=== PATIENT | female | born 1945 | race Caucasian/White ===

== ENCOUNTER 2022-03-17 11:51 | Outpatient (CLI) | payer MEDICARE, OTHER, SELFPAY ==
[2022-03-17 14:05] LABS: Vitamin D 25 Hydroxy* 43 ng/mL (30-80)
[2022-03-17 14:05] LABS: Chloride* 103 mmol/L (96-114); Potassium* 4.3 mmol/L (3.6-5.1); Sodium* 140 mmol/L (135-149)
[2022-03-17 14:08] LABS: Blood Urea Nitrogen* 24 mg/dL (7-30); Carbon Dioxide* 32 mmol/L (20-32); Creatinine* 0.7 mg/dL (0.5-1.5); Estimated Glomerular Filt Rate 91 ml/min
[2022-03-17 14:09] LABS: Calcium* 9.9 mg/dL (8.4-10.6); Glucose* 84 mg/dL (60-115)
== END 2022-03-17 11:52 | disposition home or self-care (01) ==
PROVIDERS: PCP Family Medicine; Visit Provider Family Medicine
DX: R53.83 Other fatigue (principal); E55.9 Vitamin D deficiency, unspecified; I10 Essential (primary) hypertension; E78.5 Hyperlipidemia, unspecified; E03.9 Hypothyroidism, unspecified; E11.9 Type 2 diabetes mellitus without complications
CPT/HCPCS: 80048; 82306; 84443

== ENCOUNTER 2022-10-25 08:10 | Outpatient (CLI) | payer MEDICARE, OTHER, SELFPAY ==
[2022-10-25 14:16] LABS: Basophils Absolute Auto 0.02 K/uL (0.00-0.30); Basophils Percent Auto 0.3 % (0.0-3.0); Eosinophils Absolute Auto 0.32 K/uL (0.00-0.50); Eosinophils Percent Auto 5.5 % (0.0-7.0); Hemoglobin* 12.8 gm/dL (12.0-16.0); Immature Granulocytes Abs Auto 0.01 K/uL (0.00-0.30); Immature Granulocytes Pct Auto 0.2 %; Lymphocytes Absolute Auto 1.33 K/uL (0.90-2.90); Lymphocytes Percent Auto 22.9 % (20-44); Mean Corpuscular HGB Conc 35 gm/dL (32-36); Mean Corpuscular Hemoglobin 35 pg (26-34); Mean Corpuscular Volume 101 fL (80-100); Monocytes Percent Auto 8.2 % (0.0-11.0); Neutrophils Absolute Auto 3.66 K/uL (1.7-7.0); Neutrophils Percent Auto 62.9 % (42.0-72.0); Platelet Count* 188 K/uL (140-440); RDW Coefficient of Variation % 15.8 % (11.5-15.5); Red Blood Count 3.66 m/uL (4.00-5.20); White Blood Count* 5.82 K/uL (4.50-11.00)
[2022-10-25 14:20] LABS: Slide Review Reflex No
[2022-10-25 14:25] LABS: Chloride* 100 mmol/L (96-114); Sodium* 137 mmol/L (135-149)
[2022-10-25 14:26] LABS: Potassium* 4.5 mmol/L (3.6-5.1)
[2022-10-25 14:28] LABS: Carbon Dioxide* 30 mmol/L (20-32); Creatinine* 0.6 mg/dL (0.5-1.5); Estimated Glomerular Filt Rate 94 ml/min
[2022-10-25 14:29] LABS: Alanine Aminotransferase* 21 U/L (4-35); Blood Urea Nitrogen* 26 mg/dL (7-30); Calcium* 9.4 mg/dL (8.4-10.6); Glucose* 248 mg/dL (60-115)
== END 2022-10-25 08:11 | disposition home or self-care (01) ==
PROVIDERS: PCP Family Medicine; Visit Provider Family Medicine
DX: I10 Essential (primary) hypertension (principal); L40.9 Psoriasis, unspecified; E03.9 Hypothyroidism, unspecified; E55.9 Vitamin D deficiency, unspecified; E78.5 Hyperlipidemia, unspecified; E11.9 Type 2 diabetes mellitus without complications
CPT/HCPCS: 80048; 80061; 84443; 84460; 85025

== ENCOUNTER 2023-01-21 08:37 | Outpatient (CLI) | payer MEDICARE, OTHER, SELFPAY ==
--- OUTSIDE RECORDS SUMMARY | 2023-01-21 08:39 | XMS_ITS | Patient Health Record ---
Author Name Unknown Organization [facility] Address [address] [place], [place] [address] Care Team Providers Care Consumer Safety Inspector Name Role Phone Tiffany Edwardsily Primary Care Provider ALLERGIES No Known Allergies REASON FOR REFERRAL No Information MEDICATIONS Medication SIG (Take, Route, Frequency, Duration) Notes Start Date End Date Status Methotrexate 15MG 6 tab 1day a week Active Lisinopril 20MG once daily Act james Humalog Pen 12 units before each meal Active Lantus SoloStar 100 UNIT/ML as directed Subcutaneous 30 units QHS Active Fish Oil daily Active Vitamin D3 daily Active Calcium Magnesium daily Ac tive Zinc daily Active Folate 800mcg daily Active SOCIAL HISTORY Tobacco Use: Social History Observation Description Date Details (start date - stop date) Never Smoker NA - NA Sex Assigned At : Social History Observation Description Sex Assigned At Unknown Tobacco Use/Smoking Question Answer Notes Are you a nonsmoker Alcohol Screen (Audit-C) Question Answer Notes Did you have a drink containing alcohol in the p ast year? No Points 0 Interpretation Negative Sexual History Question Answer Notes Had sex in the past 12 months (vaginal, oral, or anal)? No Have you ever had a Sexually transmitted disease ? No PROBLEMS Problem Type ICD Code Onset Dates Problem Status W/U Status Risk SNOMED Code Notes Problem Rectocele (N81.6) Active confirmed Laxmi iation of rectum into vagina (515876976) Problem Cystocele (N81.10) Active confirmed Cystocele (956485670) Problem Stress incontinence of urine (N39.3) Active confirmed SI - Stress incontinence (48462874) Problem Uterovaginal prolapse, complete (N81.3) Active confirmed 28536333 Problem Female stress incontinence (N39.3) Active confirmed Female stress incontinence (84330674) Problem Stress incontinence, female (N39.3) Active confirmed 42081366 Problem Complete uterine prolapse (N81.3) Active confirmed Complete uterine prolapse (36525489) Problem Uncontrolled type 2 diabetes mellitus with hyperglycemia (E11.65) Active confirmed 884372336 PLAN OF TREATMENT No Information Insurance Providers Payer Name Payer Address Payer Phone Subscriber Number Group Number Insured Name Patient Relationship to Insured Coverage Start Date Coverage End Date Med[employer] (Ins. Bill) [address] [address] [place], [place] [id number] Celena Montez Self - patient is the insured Medicare (Ins. Bill) [address] [place], [place] [id number] Celena Montez Self - patient is the insured MEDICAL (GENERAL) HISTORY Medical History History ICD Code Hypertension Diabetes Arthritis Vericose veins Psoriasis Surgical History Surgery Date(Month/Year) appendix and right ovary removal 1970
== END 2023-01-21 08:38 | disposition home or self-care (01) ==
LOC: WOUND 08:37
PROVIDERS: PCP Family Medicine; Visit Provider Nurse Practitioner Family
DX: S81.802A Unspecified open wound, left lower leg, initial encounter (principal); W26.8XXA Contact with other sharp object(s), not elsewhere classified, initial encounter; I87.2 Venous insufficiency (chronic) (peripheral); E11.9 Type 2 diabetes mellitus without complications; Z79.4 Long term (current) use of insulin
CPT/HCPCS: 97597; 99213

== ENCOUNTER 2023-01-28 08:16 | Outpatient (CLI) | payer MEDICARE, OTHER, SELFPAY ==
--- OUTSIDE RECORDS SUMMARY | 2023-01-28 08:18 | XMS_ITS | Patient Health Record ---
Author Name Unknown Organization [facility] Address [address] [place], [place] [address] Care Team Providers Care Manager Payer Name Role Phone Tiffany Edwardsily Primary Care [...] confirmed Laxmi iation of rectum into vagina (810764802) Problem Cystocele (N81.10) Active confirmed Cystocele (536573368) Problem Stress incontinence of urine (N39.3) Active confirmed SI - Stress incontinence (86562731) Problem Uterovaginal prolapse, complete (N81.3) Active confirmed 74726796 Problem Female stress incontinence (N39.3) Active confirmed Female stress incontinence (47439048) Problem Stress incontinence, female (N39.3) Active confirmed 71612219 Problem Complete uterine prolapse (N81.3) Active confirmed Complete uterine prolapse (87644996) Problem Uncontrolled type 2 diabetes mellitus with hyperglycemia (E11.65) Active confirmed 467078352 PLAN OF TREATMENT No Information Insurance Providers Payer Name Payer Address Payer Phone Subscriber Number Group Number Insured Name Patient Relationship to Insured Coverage Start Date Coverage End Date Med[employer] (Ins. Bill) [address] [address] [place], [place] [id number] Celena Montez Self - patient is the insured Medicare (Ins. Bill) [address] [place], [place] [id number] Celena Montez Self - patient is the insured MEDICAL (GENERAL) HISTORY Medical History History ICD Code Hypertension Diabetes Arthritis Vericose veins Psoriasis Surgical History Surgery Date(Month/Year) appendix and right ovary removal 1970
== END 2023-01-28 08:17 | disposition home or self-care (01) ==
LOC: WOUND 08:16
PROVIDERS: PCP Family Medicine; Visit Provider Nurse Practitioner Family
DX: S81.802A Unspecified open wound, left lower leg, initial encounter (principal); I87.2 Venous insufficiency (chronic) (peripheral); E11.9 Type 2 diabetes mellitus without complications; Z79.4 Long term (current) use of insulin
CPT/HCPCS: 11042

== ENCOUNTER 2023-02-04 09:04 | Outpatient (CLI) | payer MEDICARE, OTHER, SELFPAY ==
--- OUTSIDE RECORDS SUMMARY | 2023-02-04 09:05 | XMS_ITS | Patient Health Record ---
Author Name Unknown Organization [facility] Address [address] [place], [place] [address] Care Team Providers Care Production Team Member Name Role Phone Tiffany Edwardsily Primary Care Provider [phone] ALLERGIES No Known Allergies REASON FOR REFERRAL [...] confirmed Laxmi iation of rectum into vagina (637072255) Problem Cystocele (N81.10) Active confirmed Cystocele (774392381) Problem Stress incontinence of urine (N39.3) Active confirmed SI - Stress incontinence (64359049) Problem Uterovaginal prolapse, complete (N81.3) Active confirmed 89224482 Problem Female stress incontinence (N39.3) Active confirmed Female stress incontinence (13125547) Problem Stress incontinence, female (N39.3) Active confirmed 95520005 Problem Complete uterine prolapse (N81.3) Active confirmed Complete uterine prolapse (82207031) Problem Uncontrolled type 2 diabetes mellitus with hyperglycemia (E11.65) Active confirmed 560072678 PLAN OF TREATMENT No Information Insurance Providers Payer Name Payer Address Payer Phone Subscriber Number Group Number Insured Name Patient Relationship to Insured Coverage Start Date Coverage End Date Med[employer] (Ins. Bill) [address] [address] [place], [place] [id number] Celena Montez Self - patient is the insured Medicare (Ins. Bill) [address] [place], [place] [id number] Celena Montez Self - patient is the insured MEDICAL (GENERAL) HISTORY Medical History History ICD Code Hypertension Diabetes Arthritis Vericose veins Psoriasis Surgical History Surgery Date(Month/Year) appendix and right ovary removal 1970
== END 2023-02-04 09:05 | disposition home or self-care (01) ==
LOC: WOUND 09:04
PROVIDERS: PCP Family Medicine; Visit Provider Nurse Practitioner Family
DX: I87.2 Venous insufficiency (chronic) (peripheral) (principal); S81.802A Unspecified open wound, left lower leg, initial encounter; E11.9 Type 2 diabetes mellitus without complications; Z79.4 Long term (current) use of insulin
CPT/HCPCS: 11042; 87070; 87186

== ENCOUNTER 2023-02-11 08:46 | Outpatient (CLI) | payer MEDICARE, OTHER, SELFPAY ==
--- OUTSIDE RECORDS SUMMARY | 2023-02-11 08:48 | XMS_ITS | Patient Health Record ---
Author Name Unknown Organization [facility] Address [address] [place], [place] [address] Care Team Providers Care Industrial Sales Engineer Name Role Phone Tiffany Edwardsily Primary Care Provider [phone] ALLERGIES No Known Allergies REASON FOR REFERRAL [...] confirmed Laxmi iation of rectum into vagina (966266965) Problem Cystocele (N81.10) Active confirmed Cystocele (133216568) Problem Stress incontinence of urine (N39.3) Active confirmed SI - Stress incontinence (79515904) Problem Uterovaginal prolapse, complete (N81.3) Active confirmed 07045574 Problem Female stress incontinence (N39.3) Active confirmed Female stress incontinence (37759645) Problem Stress incontinence, female (N39.3) Active confirmed 35763190 Problem Complete uterine prolapse (N81.3) Active confirmed Complete uterine prolapse (15249940) Problem Uncontrolled type 2 diabetes mellitus with hyperglycemia (E11.65) Active confirmed 396452322 PLAN OF TREATMENT No Information Insurance Providers Payer Name Payer Address Payer Phone Subscriber Number Group Number Insured Name Patient Relationship to Insured Coverage Start Date Coverage End Date Med[employer] (Ins. Bill) [address] [address] [place], [place] [id number] Celena Montez Self - patient is the insured Medicare (Ins. Bill) [address] [place], [place] [id number] Celena Montez Self - patient is the insured MEDICAL (GENERAL) HISTORY Medical History History ICD Code Hypertension Diabetes Arthritis Vericose veins Psoriasis Surgical History Surgery Date(Month/Year) appendix and right ovary removal 1970
== END 2023-02-11 08:47 | disposition home or self-care (01) ==
LOC: WOUND 08:46
PROVIDERS: PCP Family Medicine; Visit Provider Family Medicine
DX: I87.2 Venous insufficiency (chronic) (peripheral) (principal); S81.802A Unspecified open wound, left lower leg, initial encounter; E11.9 Type 2 diabetes mellitus without complications; Z79.4 Long term (current) use of insulin
CPT/HCPCS: 97597

== ENCOUNTER 2023-03-04 08:35 | Outpatient (CLI) | payer MEDICARE, OTHER, SELFPAY ==
--- OUTSIDE RECORDS SUMMARY | 2023-03-04 08:38 | XMS_ITS | Patient Health Record ---
Author Name Unknown Organization [facility] Address [address] [place], [place] [address] Care Team Providers Care Montessori Preschool Teacher Name Role Phone Tiffany Edwardsily Primary Care [...] confirmed Laxmi iation of rectum into vagina (210046201) Problem Cystocele (N81.10) Active confirmed Cystocele (626969356) Problem Stress incontinence of urine (N39.3) Active confirmed SI - Stress incontinence (53142166) Problem Uterovaginal prolapse, complete (N81.3) Active confirmed 83856180 Problem Female stress incontinence (N39.3) Active confirmed Female stress incontinence (71776675) Problem Stress incontinence, female (N39.3) Active confirmed 06116538 Problem Complete uterine prolapse (N81.3) Active confirmed Complete uterine prolapse (09327215) Problem Uncontrolled type 2 diabetes mellitus with hyperglycemia (E11.65) Active confirmed 082965049 PLAN OF TREATMENT No Information Insurance Providers Payer Name Payer Address Payer Phone Subscriber Number Group Number Insured Name Patient Relationship to Insured Coverage Start Date Coverage End Date Med[employer] (Ins. Bill) [address] [address] [place], [place] [id number] Celena Montez Self - patient is the insured Medicare (Ins. Bill) [address] [place], [place] [id number] Celena Montez Self - patient is the insured MEDICAL (GENERAL) HISTORY Medical History History ICD Code Hypertension Diabetes Arthritis Vericose veins Psoriasis Surgical History Surgery Date(Month/Year) appendix and right ovary removal 1970
== END 2023-03-04 08:36 | disposition home or self-care (01) ==
PROVIDERS: PCP Family Medicine; Visit Provider Nurse Practitioner Family
DX: I87.2 Venous insufficiency (chronic) (peripheral) (principal); E11.9 Type 2 diabetes mellitus without complications; L97.822 Non-pressure chronic ulcer of other part of left lower leg with fat layer exposed; Z79.4 Long term (current) use of insulin
CPT/HCPCS: 11042

== ENCOUNTER 2023-03-11 09:28 | Outpatient (CLI) | payer MEDICARE, OTHER, SELFPAY ==
--- OUTSIDE RECORDS SUMMARY | 2023-03-11 09:31 | XMS_ITS | Patient Health Record ---
Author Name Unknown Organization [facility] Address [address] [place] [address] Care Team Providers Care Production Designer Name Role Phone Tiffany Edwardsily Primary Care Provider [phone] ALLERGIES No Known Allergies REASON FOR REFERRAL [...] confirmed Laxmi iation of rectum into vagina (325180265) Problem Cystocele (N81.10) Active confirmed Cystocele (465781558) Problem Stress incontinence of urine (N39.3) Active confirmed SI - Stress incontinence (20336592) Problem Uterovaginal prolapse, complete (N81.3) Active confirmed 93320906 Problem Female stress incontinence (N39.3) Active confirmed Female stress incontinence (03078376) Problem Stress incontinence, female (N39.3) Active confirmed 20781695 Problem Complete uterine prolapse (N81.3) Active confirmed Complete uterine prolapse (98907983) Problem Uncontrolled type 2 diabetes mellitus with hyperglycemia (E11.65) Active confirmed 940952724 PLAN OF TREATMENT No Information Insurance Providers Payer Name Payer Address Payer Phone Subscriber Number Group Number Insured Name Patient Relationship to Insured Coverage Start Date Coverage End Date Med[employer] (Ins. Bill) [address] [address] [place], [place] [id number] Celena Montez Self - patient is the insured Medicare (Ins. Bill) [address] [place], [place] [id number] Celena Montez Self - patient is the insured MEDICAL (GENERAL) HISTORY Medical History History ICD Code Hypertension Diabetes Arthritis Vericose veins Psoriasis Surgical History Surgery Date(Month/Year) appendix and right ovary removal 1970
== END 2023-03-11 09:29 | disposition home or self-care (01) ==
LOC: WOUND 09:29
PROVIDERS: PCP Family Medicine; Visit Provider Family Medicine
DX: I87.2 Venous insufficiency (chronic) (peripheral) (principal); L97.822 Non-pressure chronic ulcer of other part of left lower leg with fat layer exposed; E11.9 Type 2 diabetes mellitus without complications; Z79.4 Long term (current) use of insulin
CPT/HCPCS: 11042

== ENCOUNTER 2023-03-18 09:12 | Outpatient (CLI) | payer MEDICARE, OTHER, SELFPAY | END 2023-03-18 09:13 | disposition home or self-care (01) | LOC: WOUND 09:12 | PROVIDERS: PCP Family Medicine; Visit Provider Nurse Practitioner Family | DX: I87.2 Venous insufficiency (chronic) (peripheral) (principal); L97.821 Non-pressure chronic ulcer of other part of left lower leg limited to breakdown of skin; E11.9 Type 2 diabetes mellitus without complications; Z79.4 Long term (current) use of insulin | CPT/HCPCS: 97597 ==

== ENCOUNTER 2023-03-25 09:16 | Outpatient (CLI) | payer MEDICARE, OTHER, SELFPAY ==
--- OUTSIDE RECORDS SUMMARY | 2023-03-25 09:18 | XMS_ITS | Patient Health Record ---
Author Name Unknown Organization [facility] Address [address] [place] [address] Care Team Providers Care Controller Operations And Hr Manager Name Role Phone Tiffany Edwardsily Primary Care [...] confirmed Laxmi iation of rectum into vagina (847077662) Problem Cystocele (N81.10) Active confirmed Cystocele (950027718) Problem Stress incontinence of urine (N39.3) Active confirmed SI - Stress incontinence (93581531) Problem Uterovaginal prolapse, complete (N81.3) Active confirmed 49015743 Problem Female stress incontinence (N39.3) Active confirmed Problem Stress incontinence, female (N39.3) Active confirmed 39042780 Problem Complete uterine prolapse (N81.3) Active confirmed Problem Uncontrolled type 2 diabetes mellitus with hyperglycemia (E11.65) Active confirmed 459686912 PLAN OF TREATMENT No Information Insurance Providers Payer Name Payer Address Payer Phone Subscriber Number Group Number Insured Name Patient Relationship to Insured Coverage Start Date Coverage End Date Med[employer] (Ins. Bill) [address] [address] [place], [place] [id number] Celena Montez Self - patient is the insured Medicare (Ins. Bill) [address] [place], [place] [id number] Celena Montez Self - patient is the insured MEDICAL (GENERAL) HISTORY Medical History History ICD Code Hypertension Diabetes Arthritis Vericose veins Psoriasis Surgical History Surgery Date(Month/Year) appendix and right ovary removal 1970
== END 2023-03-25 09:17 | disposition home or self-care (01) ==
LOC: WOUND 09:16
PROVIDERS: PCP Family Medicine; Visit Provider Nurse Practitioner Family
DX: I87.2 Venous insufficiency (chronic) (peripheral) (principal); L97.821 Non-pressure chronic ulcer of other part of left lower leg limited to breakdown of skin; E11.9 Type 2 diabetes mellitus without complications; Z79.4 Long term (current) use of insulin
CPT/HCPCS: 97597

== ENCOUNTER 2023-03-31 13:20 | Outpatient (CLI) | payer MEDICARE, OTHER, SELFPAY | END 2023-03-31 13:21 | disposition home or self-care (01) | PROVIDERS: PCP Family Medicine; Visit Provider Family Medicine | DX: E11.9 Type 2 diabetes mellitus without complications (principal); I10 Essential (primary) hypertension; E03.9 Hypothyroidism, unspecified | CPT/HCPCS: 80048; 84443 ==

== ENCOUNTER 2023-04-01 09:21 | Outpatient (CLI) | payer MEDICARE, OTHER, SELFPAY ==
--- OUTSIDE RECORDS SUMMARY | 2023-04-01 09:23 | XMS_ITS | Patient Health Record ---
Author Name Unknown Organization [facility] Address [address] [place] [address] Care Team Providers Care Program Director Cable Television Name Role Phone Tiffany Edwardsily Primary Care [...] confirmed Laxmi iation of rectum into vagina (280062269) Problem Cystocele (N81.10) Active confirmed Cystocele (209098627) Problem Stress incontinence of urine (N39.3) Active confirmed SI - Stress incontinence (79399103) Problem Uterovaginal prolapse, complete (N81.3) Active confirmed 94511079 Problem Female stress incontinence (N39.3) Active confirmed Female stress incontinence (78361442) Problem Stress incontinence, female (N39.3) Active confirmed 20158974 Problem Complete uterine prolapse (N81.3) Active confirmed Complete uterine prolapse (52247497) Problem Uncontrolled type 2 diabetes mellitus with hyperglycemia (E11.65) Active confirmed 424361349 PLAN OF TREATMENT No Information Insurance Providers Payer Name Payer Address Payer Phone Subscriber Number Group Number Insured Name Patient Relationship to Insured Coverage Start Date Coverage End Date Med[employer] (Ins. Bill) [address] [address] [place], [place] [id number] Celena Montez Self - patient is the insured Medicare (Ins. Bill) [address] [place], [place] [id number] Celena Montez Self - patient is the insured MEDICAL (GENERAL) HISTORY Medical History History ICD Code Hypertension Diabetes Arthritis Vericose veins Psoriasis Surgical History Surgery Date(Month/Year) appendix and right ovary removal 1970
== END 2023-04-01 09:22 | disposition home or self-care (01) ==
LOC: WOUND 09:21
PROVIDERS: PCP Family Medicine; Visit Provider Nurse Practitioner Family
DX: I87.2 Venous insufficiency (chronic) (peripheral) (principal); L97.822 Non-pressure chronic ulcer of other part of left lower leg with fat layer exposed; E11.9 Type 2 diabetes mellitus without complications; Z79.4 Long term (current) use of insulin
CPT/HCPCS: G0463

== ENCOUNTER 2023-06-23 12:01 | Outpatient (CLI) | payer MEDICARE, OTHER, SELFPAY | END 2023-06-23 12:02 | disposition home or self-care (01) | PROVIDERS: PCP Family Medicine; Visit Provider Family Medicine | DX: E11.9 Type 2 diabetes mellitus without complications (principal); E03.9 Hypothyroidism, unspecified; I10 Essential (primary) hypertension; Z79.4 Long term (current) use of insulin | CPT/HCPCS: 80048; 84443; 85025 ==

== ENCOUNTER 2024-03-07 10:45 | Outpatient (CLI) | payer MEDICARE, OTHER, SELFPAY ==
--- OUTSIDE RECORDS SUMMARY | 2024-03-07 10:47 | XMS_ITS | Referral Summary ---
Author Organization [facility] Address [address] [place] [address] Care Team Providers Care Knitter Machine Name Role Phone Gabino Sidhu MD Primary Care Provider Allergies No known active allergies Medications aspirin 81 MG EC tablet Take 81 mg by mouth daily Active lisinopril-hydr ochlorothiazide (ZESTORETIC) 20-12.5 MG tablet Take 1 tablet by mouth daily Active methotrexate 2.5 MG tablet Take 15 mg by mouth once a week Take 6 tablets every Tuesday Active folic acid (FOLVITE) 1 MG tablet Take 1 mg by mouth daily Active insulin glargine (BASAGLAR KWIKPEN) 100 UNIT/ML pen Inject 30 Units Subcutaneous At Bedtime Active Calcium Citrate-Vitamin D 200-250 MG-UNIT TABS Take 1 tablet by mouth daily Active Epes-3 Fatty Acids (FISH OIL) 1200 MG capsule 1,200 mg daily Activ e ibuprofen (ADVIL/MOTRIN) 600 MG tabletIndicatio ns:Postoperativ e pain Take 1 tablet (600 mg) by mouth every 6 hours as needed for other (mild and/or inflammatory pain) 30 tablet 1 Active acetaminophen (TYLENOL) 325 MG tabletIndicatio ns:Postoperativ e pain Take 2 tablets (650 mg) by mouth every 6 hours as needed for mild pain 30 tablet 1 Active oxyCODONE (ROXICODONE) 5 MG tabletIndicatio ns:Postoperativ e pain Take 1-2 tablets (5-10 mg) by mouth every 6 hours as needed for moderate to severe pain 12 tablet 1 Active ondansetron (ZOFRAN-ODT) 4 MG ODT tabIndications: Postoperative pain Take 1-2 tablets (4-8 mg) by mouth every 8 hours as needed for nausea 12 tablet Active insulin lispro (HUMALOG KWIKPEN) 100 UNIT/ML (1 unit dial) KWIKPEN Inject 10 Units Subcutaneous 3 times daily (before meals) Active Active Problems Problem Noted Date Diagnosed Date Uterovaginal prolapse, complete 01/01/2021 Stress incontinence 01/01/2021 Postoperative state 01/01/2021 Social History Tobacco Use Types Packs/Day Years Used Date Smoking Tobacco: Never Smokeless Tobacco: Never Alcohol Use Standard Drinks/Week Comments Not Currently 0 (1 standard drink = 0.6 oz pur e alcohol) Adolescent Education Answer Date Record ed Getting School Help Needed Not on file 12/25 Comments No Sex and Gender Information Value Date Recorded Sex Assigned at Not on file Legal Sex Female 2:41 PM CDT Gender Identity Not on file Sexual Orientation Not on file Last Filed Vital Signs Vital Sign Reading Time Taken Comments Blood Pressure 123/56 01/02/2021 8:33 AM CDT Pulse 59 01/02/2021 8:33 AM CDT Temperature 36.5 C (97.7 F) 01/02/2021 8:33 AM CDT Respiratory Rate 16 01/02/2021 8:33 AM CDT Oxygen Saturation 95% 01/02/2021 8:33 AM CDT Inhaled Oxygen Concentration - - Weight 73.5 kg (162 lb) 01/01/2021 5:39 AM CDT Height 167.6 cm (5' 6) 01/01/2021 5:39 AM CDT Body Mass Index 26.15 01/01/2021 5:39 AM CDT Plan of Treatment Not on file Medical Devices Implanted Type Area Floor Worker Device Identifier Shelf Expiration Date Model / Serial / Lot Mesh Sling Y Shape Restorelle 24x4cm [id number] - [id number] Implanted:Qty: 1 on 01/01/2021 by Karen Edwards MD at [facility] Mesh N/A: Abdomen COLOPLAST 03/07/2023 [id number] / [id number] Mesh Sling Advantage Mid-Uretheral Blue [id number] - [id number] Implanted:Qty: 1 on 01/01/2021 by Karen Edwards MD at [facility] Mesh N/A: Abdomen [employer] [place] 09/02/2023 [id number] / / [id number] Insurance [employer]ICA PRIME SOLUTION MEDICARE Advance Directives For more information, please contact: [phone] * Full Code (Latest Code Status on File) Date Activated Date Inactivated Comments 01/01/2021 5:32 PM 01/02/2021 4:40 PM All basic an d advanced life-sustaining interventions are performed as appropriate Question Answer Comments Code status determined by: Discussion with barbara nt/ legal decision maker Care Teams Knitter Machine Relationship Specialty Start Date End Date Gabino Sidhu MD PCP - General Family Medicine 12/09/20
--- OUTSIDE RECORDS SUMMARY | 2024-03-07 10:47 | XMS_ITS | Clinical Summary ---
Author Organization [facility] Address [place], [place] [address] Care Team Providers Care Tank Hoop Bender Name Role Phone Pcp, No Primary Care Provider Unavailabl e Allergies No known active allergies Medications Medication Sig Dispensed Refills Start Date End Date Status GLUCAGON EMERGENCY 1 MG INJECTION KITIndications:Type II or unspecified type diabetes mellitus without mention of complication, not stated as uncontrolled As directed 1 12 12/28/2007 Active Diabetic ShoeIndications:Type 2 diabetes mellitus without complication (HC) As directed. 1 Units 0 03/06/2015 Active lancets (ONE TOUCH DELICA) 33 gauge miscIndications:Type 2 diabetes mellitus without complication (HC) As directed. Dispense item covered by pt ins. E11.9 NIDDM type II - Test 4 times/day. Reason: Multiple daily injections 200 Each 12 03/10/2015 Active Insulin [place], Disposable, (NOVOFINE 30) 30 gauge x 1/3Indications:Type 2 diabetes mellitus without complication (HC) For administering insulin at home. Injects QID 1 box 12 03/17/2015 Active ascorbic acid, vitamin C, (VITAMIN C) 1,000 mg tabletIndications:Ty pe 2 diabetes mellitus without complication, with long-term current use of insulin (HC) Take 1 tablet by mouth once daily. 0 03/19/2016 Active cholecalciferol (VITAMIN D) 1,000 unit tabletIndications:Ty pe 2 diabetes mellitus without complication, with long-term current use of insulin (HC) Take 1 tablet by mouth once daily. 0 03/19/2016 Active blood sugar diagnostic (ONETOUCH ULTRA TEST) stripIndications:Typ e 2 diabetes mellitus without complication, with long-term current use of insulin (HC) Dispense test strips covered by the patient insurance. Test 3 times per day. 150 Each 12 03/31/2017 Active ONETOUCH ULTRA TEST stripIndications:Typ e 2 diabetes mellitus without complication, with long-term current use of insulin (HC) TEST FOUR TIMES A DAY 400 Strip 3 06/17/2017 Active lisinopril-hydrochlo rothiazide 20-12.5 mg tablet (PRINZIDE)Indication s:Essential hypertension Take 1 tablet by mouth once daily. 90 tablet 3 12/27/2017 Active methotrexate (RHEUMATREX) 2.5 mg tablet Take 15 mg by mouth once weekly. Fridays Active folic acid 1 mg tablet Take 1 mg by mouth once daily. Active aspirin chewable 81 mg chewable tabletIndications:Hy perlipidemia, unspecified hyperlipidemia type Chew 1 Tablet (81 mg) by mouth once daily with a meal. 10/02/2023 Active atorvastatin (LIPITOR) 20 mg tabletIndications:Hy perlipidemia, unspecified hyperlipidemia type Take 1 Tablet (20 mg) by mouth at bedtime. 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 100 Each 10/04/2023 Active nystatin powder (MYCOSTATIN) powderIndications:Ca ndidal intertrigo Apply 1 Strip topically to affected area(s) three times daily. 60 g 10/11/2023 Active cholecalciferol (Vitamin D) 1,000 unit capsuleIndications:V itamin D deficiency Take 1 Capsule (1,000 units) by mouth once daily. 90 Capsule 3 10/17/2023 Active INSULIN LISPRO SUBQ Inject 10 units subcutaneous 3 times daily 1 hr prior to meals. Active FreeStyle [place] 3 Sensor for continuous blood glucose monitor (CGM)Indications:LAD A (latent autoimmune diabetes in adults), managed as type 1 (HC) To be used to read blood sugars, follow organic section technical lead directions. 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 Candidiasis of vulva and vagina 09/28/2005 08/13/2006 Type II or unspecified type diabetes mellitus with ketoacidosis, not stated as uncontrolled 09/25/2005 08/13/2006 Overview (09/25/2005): New onset Type II or unspecified type diabetes mellitus without mention of complication, uncontrolled 09/25/2005 08/13/2006 Overview (09/25/2005): New onset w/ acidemia. METABOLIC ACIDOSIS 09/25/2005 7 Overview (09/25/2005): Due to new dm Unspecified essential hypertension 09/25/2005 01/20/2015 Other specified visual disturbances 09/25/2005 08/13/2006 Overview (09/25/2005): secondary to hyperglycemia Type II or unspecified type diabetes mellitus with ketoacidosis, not stated as uncontrolled 09/25/2005 08/13/2006 Overview (08/13/2006): RICHARD-latent autoimmune diabetes of adults Other specified disease of white blood cells 6 08/13/2006 Type 2 Diabetes A1C< 7.5 09/25/2005 Overview (08/13/2006): RICHARD - latent autoimmune diabetes of adulthood Encounters Date Type Department Care Team Description 12/15/2023 11:00 AM CDT Office Visit [facility] [address] [id number] Khalif Rojas, DONNA Consult (Diabetic foot check. Left foot with calluses) 12/15/2023 Travel from Last 3 Months Immunizations Name Administration Dates Next Due Td (Age >=7 Years) 07/23/1992 Tdap 04/10/2012 Family History Medical History Relation Name Comments Hypertension Father Stroke Father Cancer Mother Lung Hypertension Mother Hypertension Sister 1 Cancer Sister 2 Liver Relation Name Status Comments Daughter Alive Father Mother Sister 1 Sister 2 Son Alive Social History Tobacco Use Types Packs/Day Years Used Date Smoking Tobacco: Never Passive Smoke Exposure: Never Smokeless Tobacco: Never Tobacco Cessation:Counseling Given: Not Answered Comments:Smoked occ for 1 year. Alcohol Use Standard Drinks/Week Comments Yes 0 (1 standard drink = 0.6 oz pur e alcohol) Occasional PHQ-2 Answer Date Recorded PHQ-2 TOTAL SCORE 0 10/11/2023 Social Connections Answer Date Recorded Do you often feel lonely or isolated from those around you? 0 09/30/2023 Financial Resource Strain Answer Date R ecorded Difficulty of Paying Living Expenses 3 09/30/2023 Difficulty of Paying Living Expenses Not on file 09/30/2023 Food Insecurity Answer Date Recorded Do you worry your food will run out before you are able to buy more? 1 09/30/2023 Transportation Needs Answer Date Record ed Does lack of transportation keep you from medica l appointments? 1 09/30/2023 Does lack of transportation keep you from work, meetings or getting things that you need? 1 09/30/2023 Housing Stability Answer Date Recorded What is your housing situation today? 1 09/30/2023 Sex and Gender Information Value Date Recorded Sex Assigned at Not on file Gender Identity Not on file Sexual Orientation Not on file Obstetrics History Last Filed Vital Signs Vital Sign Reading Time Taken Comments Blood Pressure 120/62 10/25/2023 9:51 AM CDT Pulse 63 12/15/2023 10:40 AM CDT Temperature 36.2 C (97.1 F) 10/25/2023 9:51 AM CDT Respiratory Rate 16 10/25/2023 9:51 AM CDT Oxygen Saturation 97% 12/15/2023 10:40 AM CDT Inhaled Oxygen Concentration - - Weight 72.8 kg (160 lb 9.6 oz) 12/15/2023 10:40 AM CDT Height 165.7 cm (5' 5.25) 10/11/2023 2:33 PM CD T Body Mass Index 26.52 10/11/2023 2:33 PM CDT Plan of Treatment Health Maintenance Due Date Last Done Comments Pneumococcal series for age 65+ (1 of 2 - PCV) 06/21/1953 Hepatitis C screening for ag e 18-79 06/21/1965 Zoster (shingles) series for age 50+ (1 of 2) 06/21/1966 DEXA/DXA scan for age 65+ 06/21/2012 Medicare Wellness for age 65+ 06/21/2012 Tetanus booster 04/10/2022 04/10/2012, 06/2011 (Declined), 07/23/1992 RSV vaccine for adults or (1 - 1-dose 75+ series) 06/21/2022 COVID-19 vaccine series ( season) 2023 09/10/2021, 07/05/2020, 06/14/2020 Influenza for age 65+ 12/04/2023 BMI (ht and wt on same day) for age 18+ 10/10/2024 10/11/2023, 03/13/2018, 12/27/2017, Additional history exists Depression screening for age 12+ 10/10/2024 10/11/2023, 12/27/2017, 03/17/2016 Tdap Completed 04/10/2012 Advance Directives Documents on File Type Date Recorded Patient Veneer Taping Machine Offbearer Expl anation Healthcare Directive 03/17/2016 1:45 PM H EALTHCARE DIRECTIVE, 03/15/2016 Healthcare Directive 03/17/2016 12:00 AM 03-15-16 * Full Code (Latest Code Status on File) Date Activated Date Inactivated Comments 09/30/2023 9:35 PM 10/04/2023 1:14 PM Question Answer Comments Code Status Discussion: Reviewed Preferences * Full Code Date Activated Date Inactivated Comments 09/25/2005 6:34 PM 09/29/2005 10:26 PM Care Teams Tank Hoop Bender Relationship Specialty Start Date End Date Pcp, No . PCP - General 07/12/18
--- OUTSIDE RECORDS SUMMARY | 2024-03-07 10:47 | XMS_ITS | Clinical Summary ---
Author Organization [facility] Address [address] [place] [id number] Care Team Providers Care Toe Trimmer Name Role Phone Gabino Sidhu MD Primary Care Provider [phone] Allergies No known active allergies Medications aspirin [...] Take 1 tablet by mouth daily Active [place]-3 Fatty Acids (FISH OIL) 1200 MG capsule [...] on file Medical Devices Implanted Type Area Manager Pool Device Identifier Shelf Expiration Date Model / Serial / Lot Mesh Sling Y Shape Restorelle [id number] - [id number] Implanted:Qty: 1 on 01/01/2021 by Karen Edwards MD at [facility] Mesh N/A: Abdomen COLOPLAST 03/07/2023 [id number] / / [id number] Mesh Sling Advantage Mid-Uretheral Blue [id number] - [id number] Implanted:Qty: 1 on 01/01/2021 by Karen Edwards MD at [facility] Mesh N/A: Abdomen Pure Focus [place] 09/02/2023 [id number] / / [id number] Insurance [employer] SOLUTION MEDICARE Advance Directives For more information, please contact: [phone] * Full Code (Latest Code Status on File) Date Activated Date Inactivated Comments 01/01/2021 5:32 PM 01/02/2021 4:40 PM All basic an d advanced life-sustaining interventions are performed as appropriate Question Answer Comments Code status determined by: Discussion with barbara nt/ legal decision maker Care Teams Toe Trimmer Relationship Specialty Start Date End Date Gabino Sidhu MD PCP - General Family Medicine 12/09/20
[2024-03-07 14:29] LABS: Creatinine Urine 82.2 mg/dL
[2024-03-07 14:34] LABS: Microalbumin Creatinine Ratio 10 mg/g (0-30); Microalbumin Urine < 1 mg/dL
== END 2024-03-07 10:46 | disposition home or self-care (01) ==
PROVIDERS: PCP Family Medicine; Visit Provider Family Medicine
DX: E11.9 Type 2 diabetes mellitus without complications (principal); Z79.4 Long term (current) use of insulin
CPT/HCPCS: 82043; 82570

== ENCOUNTER 2024-07-24 09:23 | Outpatient (CLI) | payer MEDICARE, OTHER, SELFPAY | END 2024-07-24 09:24 | disposition home or self-care (01) | LOC: FBOREF 09:24 | PROVIDERS: PCP Family Medicine; Visit Provider Family Medicine | DX: E11.65 Type 2 diabetes mellitus with hyperglycemia (principal); E78.2 Mixed hyperlipidemia; I10 Essential (primary) hypertension; Z79.4 Long term (current) use of insulin | CPT/HCPCS: 80048; 80061; 84460; 85025 ==

== ENCOUNTER 2024-09-11 10:27 | Outpatient (CLI) | payer MEDICARE, OTHER, SELFPAY ==
[2024-09-11 14:37] LABS: SARS PCR* Negative SARS-CoV-2 (Negative)
== END 2024-09-11 10:28 | disposition home or self-care (01) ==
LOC: FBOREF 10:27
PROVIDERS: PCP Family Medicine; Visit Provider Family Medicine
DX: R09.81 Nasal congestion (principal)
CPT/HCPCS: 87635

== ENCOUNTER 2024-12-24 14:36 | Outpatient (CLI) | payer MEDICARE, OTHER, SELFPAY ==
[2024-12-24 22:21] LABS: PCR FLU A Negative PCR FLU A (Negative); PCR FLU B Negative PCR FLU B (Negative); SARS PCR* POSITIVE SARS-CoV-2 (Negative)
== END 2024-12-24 14:37 | disposition home or self-care (01) ==
LOC: FBOREF 14:36
PROVIDERS: PCP Family Medicine; Visit Provider Family Medicine
DX: R05.9 Cough, unspecified (principal)
CPT/HCPCS: 87631

== ENCOUNTER 2025-03-20 12:46 | Outpatient (CLI) | payer MEDICARE, OTHER, SELFPAY | END 2025-03-20 12:47 | disposition home or self-care (01) | LOC: FBOREF 12:46 | PROVIDERS: PCP Family Medicine; Visit Provider Family Medicine | DX: E11.9 Type 2 diabetes mellitus without complications (principal); Z79.4 Long term (current) use of insulin; I10 Essential (primary) hypertension; L40.9 Psoriasis, unspecified | CPT/HCPCS: 80048; 82043; 82570 ==